=== PATIENT | female | born 1990 | race Caucasian/White ===

== ENCOUNTER → 2017-09-04 | Emergency (ER) | payer OTHER ==
[~2017-09-04] VITALS: Ht 157.5 cm; Wt 49.9 kg
== END | disposition left against medical advice (07) ==
LOC: ER 21:59
DX: Z53.20 Procedure and treatment not carried out because of patient's decision for unspecified reasons (principal)

== ENCOUNTER 2023-02-11 09:27 | Outpatient (CLI) | payer OTHER | END 2023-02-11 12:11 | disposition home or self-care (01) | LOC: PRENATAL 09:27 | PROVIDERS: ATTEND Obstetrics & Gynecology Maternal & Fetal Medicine | DX: O35.3XX0 Maternal care for (suspected) damage to fetus from viral disease in mother, not applicable or unspecified (principal); O44.00 Complete placenta previa NOS or without hemorrhage, unspecified trimester; Z3A.24 24 weeks gestation of pregnancy ==

== ENCOUNTER 2023-04-09 14:32 | Outpatient (CLI) | payer OTHER | END 2023-04-09 14:34 | disposition home or self-care (01) | LOC: PRENATAL 14:32 | PROVIDERS: ATTEND Obstetrics & Gynecology Maternal & Fetal Medicine | DX: O26.849 Uterine size-date discrepancy, unspecified trimester (principal); O36.8199 Decreased fetal movements, unspecified trimester, other fetus; Z3A.32 32 weeks gestation of pregnancy ==

== ENCOUNTER 2023-05-08 14:44 | Outpatient (CLI) | payer OTHER | END 2023-05-08 14:46 | disposition home or self-care (01) | LOC: PRENATAL 14:44 | PROVIDERS: ATTEND Obstetrics & Gynecology Maternal & Fetal Medicine | DX: O26.849 Uterine size-date discrepancy, unspecified trimester (principal); O36.8199 Decreased fetal movements, unspecified trimester, other fetus; Z3A.36 36 weeks gestation of pregnancy ==

== ENCOUNTER 2023-05-15 17:56 | Inpatient (IN) | payer OTHER ==
[~2023-05-15] VITALS: Ht 157.5 cm; Wt 2.3 kg
[2023-05-15 20:06] LABS: HEMATOCRIT 31.1 % (36.0-45.00); HEMOGLOBIN 10.4 g/dL (12.0-15.00); MEAN CELL VOLUME 79.7 fL (80.00-100.00); MEAN CORPUSCULAR HEMOGLOBIN 26.5 pg (27.00-32.0); MEAN CORPUSCULAR HGB CONC 33.3 g/dl (32.0-36.0); PLATELET COUNT 252 K/uL (150-450); RED CELL DISTRIBUTION WIDTH 13.4 % (11.5-14.5)
[2023-05-15 20:07] LABS: PH,URINE 6.5 (5.0-8.0); URINE APPEARANCE Clear; URINE BILIRRUBIN Negative (NEGATIVE); URINE BLOOD Negative; URINE COLOR Yellow; URINE GLUCOSE Negative (NEGATIVE); URINE LEUKOCYTE Negative; URINE NITRATE Negative; URINE PROTEIN Negative (NEGATIVE); URINE UROBILINOGEN 0.2 E.U./dl
[2023-05-15 20:08] LABS: URINE BACTERIA 96.9 uL (0.0-1933); URINE EPITHELIAL CELLS 13.7 uL (0.0-38.8); URINE RBC 3.1 uL (0.0-20.8)
[2023-05-15] MEDS ORDERED: PRENATAL TABLE1 EAC1 PO (20:16)
[2023-05-15 20:25] LABS: INR 0.95; PARTIAL THROMBOPLASTIN TIME 23.7 SECONDS (22.0-34.0)
[2023-05-15 20:30] LABS: ALBUMIN 2.8 gm/dL (3.4-5.0); BILIRUBIN TOTAL 0.38 mg/dL (0.3-1.2); CALCIUM 9.2 mg/dL (8.5-10.1); CREATININE SERUM 0.54 mg/dL (0.55-1.02); GFR 130.83; GLOBULINA 3.9 G/DL (2.4-3.5); POTASSIUM 3.81 mEq/L (3.5-5.1); TOTAL PROTEIN 6.7 gm/dL (6.4-8.2)
[2023-05-16 19:45] LABS: ABG PH 7.258 (7.35-7.45); ABG pCO2 43.7 mmHg (35-45); BASE EXCESS -7.8 mmol/l; BICARBONATE 19.1 mmol/l (23-25); SaO2 30.6 %; Tco2 20.4 mmol/l; o2 21 %
[2023-05-16 19:46] LABS: ABG PO2 23.7 mmHg (80-100)
[2023-05-17 07:00] LABS: HEMATOCRIT 28.6 % (36.0-45.00); HEMOGLOBIN 9.5 g/dL (12.0-15.00); MEAN CELL VOLUME 81.2 fL (80.00-100.00); MEAN CORPUSCULAR HGB CONC 33.3 g/dl (32.0-36.0); PLATELET COUNT 243 K/uL (150-450); RED BLOOD COUNT 3.52 M/uL (4.00-6.00); RED CELL DISTRIBUTION WIDTH 13.2 % (11.5-14.5)
[2023-05-19] MEDS ORDERED: Tylenol #3 PO (11:03)
[2023-05-19] MEDS ORDERED: NAPR500T14 PO (11:03)
== END 2023-05-19 13:27 | disposition home or self-care (01) | DRG 788 ==
LOC: LDR 17:56 → O/R 05-16 13:32 → OB/GYN 05-16 15:29
PROVIDERS: Student in an Organized Health Care Education/Training Program; ADMIT Obstetrics & Gynecology; ATTEND Obstetrics & Gynecology
PROC: 3E0P7VZ Introduction of Hormone into Female Reproductive, Via Natural or Artificial Opening (ICD-10-PCS; 2023-05-15)
PROC: 4A1HXCZ Monitoring of Products of Conception, Cardiac Rate, External Approach (ICD-10-PCS; 2023-05-15)
PROC: 3E033VJ Introduction of Other Hormone into Peripheral Vein, Percutaneous Approach (ICD-10-PCS; 2023-05-16)
PROC: 10D00Z1 Extraction of Products of Conception, Low, Open Approach (ICD-10-PCS; principal; 2023-05-16 12:00)
DX: O61.0 Failed medical induction of labor (principal); O82 Encounter for cesarean delivery without indication; Z3A.37 37 weeks gestation of pregnancy; Z37.0 Single live birth; Z20.822 Contact with and (suspected) exposure to COVID-19